=== PATIENT | female | born 1960 | race African-American/Black ===

== ENCOUNTER 2016-04-20 15:35 | Outpatient (CLI) | payer OTHER ==
[2015-11-01 13:01] VITALS: BP 120/74
[2016-04-20 16:20] LABS: eGFR (African) > 60; eGFR (Non-African) > 60
== END 2016-04-20 15:36 ==
LOC: LAB 15:35
PROVIDERS: ATTEND Internal Medicine
DX: E10.65 Type 1 diabetes mellitus with hyperglycemia (principal)
CPT/HCPCS: 36415; 80053; 83036

== ENCOUNTER 2016-05-08 08:24 | Outpatient (CLI) | payer OTHER ==
[2015-11-01 13:01] VITALS: BP 120/74
[2016-05-08 09:13] LABS: BASOPHILS % 0.1 (0.0-1.5); EOSINOPHILS % 0.8 % (0.0-6.8); LYMPHOCYTES # 1.5 # k/uL (0.6-4.0); MEAN CORPUSCULAR HEMOGLOBIN 32.3 pg (28.0-34.0); MONOCYTES # 0.3 # k/uL (0.0-0.9); MONOCYTES % 5.8 % (0.0-11.0); NEUTROPHILS # 2.8 # k/uL (1.4-7.7)
== END 2016-05-08 08:25 ==
LOC: LAB 08:24
PROVIDERS: ATTEND Nurse Practitioner Psychiatric/Mental Health
DX: Z51.81 Encounter for therapeutic drug level monitoring (principal); Z79.899 Other long term (current) drug therapy
CPT/HCPCS: 36415; 84439; 85025

== ENCOUNTER 2016-07-14 08:17 | Outpatient (CLI) | payer OTHER ==
[2015-11-01 13:01] VITALS: BP 120/74
[2016-07-14 09:07] LABS: BASOPHILS % 0.2 (0.0-1.5); EOSINOPHILS % 0.7 % (0.0-6.8); MEAN CORPUSCULAR HEMOGLOBIN 33.2 pg (28.0-34.0); MEAN CORPUSCULAR VOLUME 99.9 fl (80.0-100.0); MONOCYTES % 4.7 % (0.0-11.0); NEUTROPHILS # 3.1 # k/uL (1.4-7.7)
[2016-07-14 09:17] LABS: eGFR (African) > 60; eGFR (Non-African) > 60
== END 2016-07-14 08:18 ==
LOC: LAB 08:17
PROVIDERS: ATTEND Nurse Practitioner Psychiatric/Mental Health
DX: E11.9 Type 2 diabetes mellitus without complications (principal); Z79.899 Other long term (current) drug therapy
CPT/HCPCS: 36415; 80053; 80164; 82043; 82784; 83036; 83516; 84443; 85025

== ENCOUNTER 2016-07-29 13:23 | Outpatient (CLI) | payer OTHER ==
[2015-11-01 13:01] VITALS: BP 120/74
--- NOTE | 2016-07-29 15:17 | Diagnostic Imaging Report ---
MAC FIGUEROA [facility] [id number] [facility] [address] [id number] Report Submission Date: July 29, 2016 3:16:16 PM CDT Patient Study Name: EMILY WALLER Date: July 29, 2016 1:47:11 PM CDT Modality Type: US Gender: F Description: UNILAT LTD STDY EXT VEINS : 60 Institution: [facility] Physician: MAC FIGUEROA Doppler venous ultrasound History: RIGHT LATERAL PROXIMAL CALF PAIN X 2 DAYS Grayscale and color Doppler images of the right lower extremity are submitted Findings: No comparison studies Flow is demonstrated in the right external iliac, common femoral, deep femoral vein, femoral vein in its proximal, mid and distal portion, greater saphenous vein, popliteal vein. These veins are compressible and demonstrate flow augmentation. Right posterior tibial vein is not well seen on the compression views however demonstrates flow. In the right lateral proximal calf there is minimal tissue heterogeneity without any evidence of abscess or focal fluid collection Impression: No evidence of deep venous thrombosis in the demonstrated venous segments of the right lower extremity. No localized abscess or fluid collection in the area of concern in the proximal lateral right calf Electronically signed on July 29, 2016 3:16:16 PM CDT by: Georgina AVILES
== END 2016-07-29 13:24 ==
LOC: RAD 13:23
PROVIDERS: ATTEND Nurse Practitioner Family
DX: M79.661 Pain in right lower leg (principal)
CPT/HCPCS: 93971

== ENCOUNTER 2016-11-06 08:32 | Outpatient (CLI) | payer OTHER ==
[2015-11-01 13:01] VITALS: BP 120/74
== END 2016-11-06 08:33 ==
LOC: LAB 08:32
PROVIDERS: ATTEND Nurse Practitioner Psychiatric/Mental Health
DX: Z79.899 Other long term (current) drug therapy (principal)
CPT/HCPCS: 36415; 84439

== ENCOUNTER 2016-12-17 07:06 | Outpatient (CLI) | payer OTHER ==
[2015-11-01 13:01] VITALS: BP 120/74
[2016-12-17 07:24] LABS: BASOPHILS % 0.3 (0.0-1.5); EOSINOPHILS % 1.6 % (0.0-6.8); MEAN CORPUSCULAR VOLUME 93.9 fl (80.0-100.0); MONOCYTES % 6.5 % (0.0-11.0); NEUTROPHILS # 2.3 # k/uL (1.4-7.7)
[2016-12-17 09:21] LABS: eGFR (African) > 60; eGFR (Non-African) > 60
== END 2016-12-17 07:07 ==
LOC: LAB 07:06
PROVIDERS: ATTEND Nurse Practitioner Psychiatric/Mental Health
DX: Z79.899 Other long term (current) drug therapy (principal)
CPT/HCPCS: 36415; 80053; 80164; 83036; 84443; 85025

== ENCOUNTER → 2016-12-21 | Outpatient (CLI) | payer OTHER ==
[2015-11-01 13:01] VITALS: BP 120/74
[2016-12-21 10:23] LABS: eGFR (African) > 60; eGFR (Non-African) > 60
== END ==
LOC: LAB 09:44
PROVIDERS: ATTEND Nurse Practitioner Family
DX: R70.0 Elevated erythrocyte sedimentation rate (principal)
CPT/HCPCS: 36415; 80048

== ENCOUNTER 2017-01-14 08:49 | Outpatient (CLI) | payer OTHER ==
[2015-11-01 13:01] VITALS: BP 120/74
[2017-01-14 09:35] LABS: eGFR (African) > 60; eGFR (Non-African) > 60
== END 2017-01-14 11:22 ==
LOC: LAB 08:49
PROVIDERS: ATTEND Nurse Practitioner Psychiatric/Mental Health
DX: Z79.899 Other long term (current) drug therapy (principal); E11.9 Type 2 diabetes mellitus without complications
CPT/HCPCS: 36415; 80053; 80164; 82784; 83036; 83516; 84443

== ENCOUNTER → 2017-02-04 | Outpatient (CLI) | payer OTHER ==
[2015-11-01 13:01] VITALS: BP 120/74
== END ==
LOC: LAB 07:07
PROVIDERS: ATTEND Nurse Practitioner Psychiatric/Mental Health
DX: Z51.81 Encounter for therapeutic drug level monitoring (principal); Z79.899 Other long term (current) drug therapy
CPT/HCPCS: 36415; 80061; 83036; 84443

== ENCOUNTER 2017-03-12 10:22 | Outpatient (CLI) | payer OTHER ==
[2015-11-01 13:01] VITALS: BP 120/74
[2017-03-12 12:11] LABS: eGFR (African) > 60; eGFR (Non-African) > 60
== END 2017-03-12 10:23 ==
LOC: LAB 10:22
PROVIDERS: ATTEND Nurse Practitioner Psychiatric/Mental Health
DX: Z79.899 Other long term (current) drug therapy (principal)
CPT/HCPCS: 36415; 80053

== ENCOUNTER 2017-04-09 08:36 | Outpatient (CLI) | payer OTHER ==
[2015-11-01 13:01] VITALS: BP 120/74
[2017-04-09 11:13] LABS: eGFR (African) > 60; eGFR (Non-African) > 60
== END 2017-04-09 08:37 ==
LOC: LAB 08:36
PROVIDERS: ATTEND Nurse Practitioner Psychiatric/Mental Health
DX: E03.9 Hypothyroidism, unspecified (principal); E87.1 Hypo-osmolality and hyponatremia
CPT/HCPCS: 36415; 80048; 83036; 84443

== ENCOUNTER 2017-06-15 08:27 | Outpatient (CLI) | payer OTHER ==
[2015-11-01 13:01] VITALS: BP 120/74
[2017-06-15 10:03] LABS: BASOPHILS % 0.5 (0.0-1.5); EOSINOPHILS % 0.8 % (0.0-6.8); MEAN CORPUSCULAR VOLUME 102.3 fl (80.0-100.0); MONOCYTES % 7.1 % (0.0-11.0); NEUTROPHILS # 2.7 # k/uL (1.4-7.7)
== END 2017-06-15 08:30 ==
LOC: LAB 08:27
PROVIDERS: ATTEND Psychiatry & Neurology Psychiatry
DX: Z79.899 Other long term (current) drug therapy (principal)
CPT/HCPCS: 36415; 80164; 84439; 85025

== ENCOUNTER 2017-07-13 15:33 | Outpatient (CLI) | payer OTHER ==
[2015-11-01 13:01] VITALS: BP 120/74
[2017-07-13 17:13] LABS: eGFR (African) > 60; eGFR (Non-African) > 60
== END 2017-07-13 15:35 ==
LOC: LAB 15:33
PROVIDERS: ATTEND Internal Medicine
DX: E11.9 Type 2 diabetes mellitus without complications (principal); E87.1 Hypo-osmolality and hyponatremia; E03.9 Hypothyroidism, unspecified
CPT/HCPCS: 36415; 80048; 83036; 84443

== ENCOUNTER 2017-10-08 09:37 | Outpatient (CLI) | payer OTHER ==
[2015-11-01 13:01] VITALS: BP 120/74
[2017-10-08 17:51] LABS: TOTAL PROTEIN 6.5 g/dL (6.0-8.5)
== END 2017-10-08 09:40 ==
LOC: LAB 09:37
PROVIDERS: ATTEND Internal Medicine
DX: E11.9 Type 2 diabetes mellitus without complications (principal)
CPT/HCPCS: 36415; 80053; 83036; 84443

== ENCOUNTER 2017-11-11 16:16 | Outpatient (CLI) | payer OTHER ==
[2015-11-01 13:01] VITALS: BP 120/74
[2017-11-11 21:50] LABS: BASO % 0.4 % (0.0-1.5); EOS % 1.5 % (0.0-6.8); LYMPH ABS # 1.64 thou/uL (0.60-4.00); MCV 96.1 fL (80.0-100.0); MONOCYTE % 9.3 % (0.0-11.0); MONOCYTE ABS # 0.42 thou/uL (0.00-0.90); PLATELET COUNT 157 thou/uL (130-400)
== END 2017-11-11 16:18 ==
LOC: LAB 16:16
PROVIDERS: ATTEND Family Medicine
DX: Z51.81 Encounter for therapeutic drug level monitoring (principal); Z79.899 Other long term (current) drug therapy
CPT/HCPCS: 36415; 80164; 84439; 85025

== ENCOUNTER 2019-03-09 04:29 | Emergency (ER) | payer OTHER ==
--- NOTE | 2019-03-09 04:53 | ED Physician Documentation ---
General Adult - HISTORIAN Historian: patient, paramedics - HPI Stated Complaint: low blood sugar Chief Complaint: General Adult Additional Information: Patient presents to ED via EMS from assisted with low blood sugar. Patient blood sugar was 35 this morning at 0300. EMS was called D50 was given. Upon presentation to ED blood sugar was 171. Social Media Intern states she was seen by Dr. Lunsford today for upper respiratory illness. Blood was drawn, UA and nasal swab was done. She was diagnosed with bacterial bronchitis. Patient was given Doxycycline but she has not received antibiotic yet. Onset: hours (2) Timing: still present Severity: moderate - ROS CONST: no problems EYES/ENT: none CVS/RESP: none GI/: none MS/SKIN/LYMPH: none NEURO/PSYCH: headache - PAST HX Past History: hypertension, other (multiple psych) Other History: diabetes Type 1 Surgeries/Procedures: none Allergies/Adverse Reactions: Allergies Allergy/AdvReac Type Severity Reaction Status Date / Time azithromycin Allergy Unknown Verified 03/09/19 05:01 [From Zithromax Z-Pascula] clarithromycin [From Biaxin] Allergy Verified 03/09/19 05:01 erythromycin base Allergy Verified 03/09/19 05:01 [Erythromycin Base] Home Medications: Ambulatory Orders Medication Instructions Recorded Aspirin [Aspir 81] 81 mg PO DAILY u2 01/15/13 Bupropion HCl [Wellbutrin Xl] 150 mg PO DAILY u2 01/15/13 Desmopressin Acetate 0.2 mg PO BID u2 01/15/13 Levothyroxine Sodium 75 mcg PO DAILY u2 01/15/13 Multivitamin [Multi Vitamin Daily] 1 each PO DAILY u2 01/15/13 Ranitidine HCl 150 mg PO BID u2 01/15/13 Sennosides/Docusate Sodium 2 each PO BID u2 01/15/13 [Doc-Q-Lax Tablet] Terbinafine HCl [Terbinafine] 15 gm TP DAILY 01/15/13 Tolnaftate 1 gm MC DAILY 01/15/13 Ergocalciferol (Vitamin D2) 50,000 unit PO Every other week av 07/12/13 [Vitamin D2] Gabapentin [Neurontin] 300 mg PO TID av 07/12/13 Haloperidol [Haldol] 100 mg IM MONTH u2 07/12/13 Insulin Glargine,Hum.rec.anlog 13 unit SQ DAILY 07/12/13 [Lantus] Lurasidone HCl [Latuda] 120 mg PO AM u2 07/12/13 Divalproex Sodium [Depakote] 250 mg PO HS u2 07/25/13 Potassium Chloride [Klor-Con 10 meq PO QDAY 11/01/15 Sprinkle] Acetaminophen [Tylenol] 1 - 2 tab PO PRN PRN 03/09/19 Bupropion HCl [Wellbutrin Xl] 150 mg PO DAILY 03/09/19 Desmopressin Acetate [Ddavp] 0.2 mg PO HS 03/09/19 Dextrose [Glucose Gel] 15 gm PO PRN PRN 03/09/19 Glucagon,Human Recombinant 1 IM/IV PRN PRN 03/09/19 [Glucagon Emergency Kit] Glucose Tablet 4 mg PO PRN PRN 03/09/19 Lisinopril [Prinivil] 10 mg PO DAILY 03/09/19 Meloxicam [Mobic] 15 mg PO DAILY 03/09/19 - SOCIAL HX Smoking History: cigarettes Alcohol Use: none Drug Use: none - FAMILY HX Family History: Yes - VITAL SIGNS Vital Signs: Vital Signs Temp Pulse Resp BP Pulse Ox 120/74 11/01/15 12:59 - REVIEWED ASSESSMENTS Nursing Assessment Reviewed: Yes Vitals Reviewed: Yes Progress - Progress Progress: [address] Gao, Endocrinology. He will accept patient in transfer to [place] if blood sugar declines. 0630 Blood sugar is 221. General Adult Physical Exam - PHYSICAL EXAM GENERAL APPEARANCE: no distress EENT: DAVID NECK: supple RESPIRATORY: no resp distress, chest non-tender, breath sounds normal CVS: reg rate & rhythm, heart sounds normal ABDOMEN: soft, non-tender SKIN: warm/dry EXTREMITIES: non-tender NEURO: motor nml, sensation nml Discharge Clincal Impression: Hypoglycemia Upper respiratory infection Qualifiers: URI type: unspecified URI Qualified Code(s): J06.9 - Acute upper respiratory infection, unspecified Referrals: Diana Lunsford MD [Primary Care Provider] - 2 Days Additional Instructions: 1. Start Doxycycline as prescribed by PCP as soon as possible 2. Continue normal insulin regimen as previously prescribed 3. Follow up with Dr. Gao, Endocrinology as soon as possible. 4. Return to ER for new or worsening symptoms Condition: Stable Disposition: 01 HOME, SELF-CARE Decision to Admit: NO Date of Decison to Admit: 03/09/19 Decision Time: 06:34
[2019-03-09] MEDS ORDERED: cefTRIAXone SODIUM 1 GM in Lidocaine 1% 5ml 2.1 ML IM ONE (05:12)
[2019-03-09] MEDS ORDERED: Lidocaine 1% 5ml 10 MG/ML VIAL IM ONE (05:16)
[2019-03-09 06:55] VITALS: BP 158/81
== END 2019-03-09 06:40 | disposition home or self-care (01) ==
LOC: ED 04:29
DX: E16.2 Hypoglycemia, unspecified (principal); J06.9 Acute upper respiratory infection, unspecified; F17.210 Nicotine dependence, cigarettes, uncomplicated
CPT/HCPCS: 96372; 99282; 99284; J0696

== ENCOUNTER 2019-03-09 16:32 | Outpatient (CLI) | payer OTHER ==
[2019-03-09 06:55] VITALS: BP 158/81
== END 2019-03-09 16:37 ==
LOC: LAB 16:32
PROVIDERS: ATTEND Internal Medicine
DX: E16.2 Hypoglycemia, unspecified (principal); R53.81 Other malaise
CPT/HCPCS: 36415; 87040